=== PATIENT | female | born 1980 ===

== ENCOUNTER 2017-08-04 11:44 | Outpatient (CLI) | payer OTHER ==
--- NOTE | 2017-08-04 13:53 | Mammography Report ---
Screening mammogram: Baseline examination. Routine views demonstrates a markedly dense breast pattern with circumscribed and partially circumscribed nodules in both breasts. Several groupings of calcifications are identified in the left breast but are somewhat difficult to clearly define due to the overall density of the breast. CAD used. Impression: Dense breast with nodularity and left breast calcifications. Recommendation: Bilateral compression imaging and magnification views of the left breast calcifications as well as breast ultrasound. Alternative evaluation with breast tomography. BI-RADS CATEGORY: 0 = Needs additional imaging evaluation ACR BI-RADS MAMMOGRAPHIC CODES: 0 = Needs additional imaging evaluation; 1 = Negative; 2 = Benign; 3 = Probably benign; 4 = Suspicious; 5 = Malignant; 6 = Known biopsy-proven malignancy COMMENT: 1. Dense breast tissue, i.e., adenosis, fibrocystic changes, etc., may obscure an underlying neoplasm. 2. Approximately 10% of cancers are not detected with mammography. 3. A negative mammography report should not delay biopsy if a clinically suspicious mass is present.
== END 2017-08-04 11:45 | disposition home or self-care (01) ==
LOC: SPVWC 11:44
PROVIDERS: ATTEND Internal Medicine
DX: Z12.31 Encounter for screening mammogram for malignant neoplasm of breast (principal)
CPT/HCPCS: 77067; G0202

== ENCOUNTER 2017-08-29 09:42 | Outpatient (CLI) | payer OTHER ==
--- NOTE | 2017-08-29 11:10 | Mammography Report ---
BILATERAL DIGITAL DIAGNOSTIC MAMMOGRAM : 08/29/17 09:42:00 CLINICAL: Recalled for bilateral asymmetries and calcifications. COMPARISON:08/04/17 screening FINDINGS: Bilateral lateralmedial and bilateral spot magnification views were performed. No mass or architectural distortion. Satisfactory effacement of previously described bilateral asymmetries a few bilateral scattered calcifications with benign morphology. IMPRESSION: No mammographic evidence of malignancy.Bilateral benign calcifications. BI-RADS CATEGORY: 2 - - Benign RECOMMENDATION: Routine mammographic screening in one year. ACR BI-RADS MAMMOGRAPHIC CODES: 0 = Needs additional imaging evaluation; 1 = Negative; 2 = Benign; 3 = Probably benign; 4 = Suspicious; 5 = Malignant; 6 = Known biopsy-proven malignancy COMMENT: 1. Dense breast tissue, i.e., adenosis, fibrocystic changes, etc., may obscure an underlying neoplasm. 2. Approximately 10% of cancers are not detected with mammography. 3. A negative mammography report should not delay biopsy if a clinically suspicious mass is present. COMMENT: Patient follow-up letters are generated via our [employer] application.
== END 2017-08-29 09:43 | disposition home or self-care (01) ==
LOC: SPVWC 09:42
PROVIDERS: ATTEND Internal Medicine
DX: R92.1 Mammographic calcification found on diagnostic imaging of breast (principal)
CPT/HCPCS: G0206-LT